=== PATIENT | male | born 1950 | race Two or more races ===

== ENCOUNTER 2024-04-06 06:41 | Emergency (ER) | payer OTHER ==
[~2024-04-06] VITALS: Ht 157.5 cm; Wt 79.8 kg
[~2024-04-06 06:41] MED LIST: AMBIEN10 MG; ECOTRIN81 MG; SYNTHROID50 MCG
[2024-04-06] MEDS ORDERED: AVAPRO75 MG PO (07:21)
[2024-04-06] MEDS ORDERED: ROSUVASTATIN CAL5 MG PO (07:22)
[2024-04-06] MEDS ORDERED: FAMOtidine 10 MG/ML (4ML VIAL) IV STA (08:53)
[2024-04-06] MEDS ORDERED: ONDANSETRON HCL 2 MG/ML VIAL IV STA (08:54)
[2024-04-06] MEDS ORDERED: KETOROLAC TROMETHAMINE 15 MG VIAL IM STA (08:54)
[2024-04-06] MEDS ORDERED: SUCRALFATE 1 G TABLET PO STA (08:54)
[2024-04-06 09:36] LABS: HEMATOCRIT 41.3 % (39.0-48.0); HEMOGLOBIN 14.3 g/dL (13-16.00); MEAN CELL VOLUME 94.5 fL (80.0-100.00); MEAN CORPUSCULAR HEMOGLOBIN 32.8 pg (27.00-32.0); MEAN CORPUSCULAR HGB CONC 34.7 g/dl (32.0-36.0); PLATELET COUNT 155 K/uL (150-450); RED BLOOD COUNT 4.37 M/uL (4.00-6.00); RED CELL DISTRIBUTION WIDTH 13.3 % (11.5-14.5)
[2024-04-06 10:53] LABS: ALBUMIN 4.1 gm/dL (3.4-5.0); BILIRUBIN TOTAL 1.73 mg/dL (0.3-1.2); CALCIUM 8.7 mg/dL (8.5-10.1); CREATININE SERUM 0.61 mg/dL (0.70-1.30); GFR 129.57; POTASSIUM 4.18 mEq/L (3.5-5.1); TOTAL PROTEIN 7.1 gm/dL (6.4-8.2)
[2024-04-06] MEDS ORDERED: 0.9 % SODIUM CHLORIDE 500 ML IV STA (10:58)
[2024-04-06] MEDS ORDERED: FAMOTIDINE/PF 20 MG in 0.9 % SODIUM CHLORIDE 8 ML IV PUSH STA (17:17)
[2024-04-06] MEDS ORDERED: LEVSIN/SL0.125 MG SL (17:19)
[2024-04-06] MEDS ORDERED: KETOROLAC TROMETHAMINE 30 MG VIAL IV ONE (17:30)
== END 2024-04-06 17:39 | disposition home or self-care (01) ==
LOC: ER 06:43
PROVIDERS: General Practice
DX: R10.9 Unspecified abdominal pain (principal); I10 Essential (primary) hypertension
CPT/HCPCS: 36415; 74177; 76700; 93005; 96365; 96372; 99284; J1885 ×2; J2405; J3490 ×2; J7042; Q9965